=== PATIENT | female | born 1965 | race Two or more races ===

== ENCOUNTER 2016-08-05 08:17 | Day surgery (SDC) | payer OTHER ==
[2016-08-04 15:49] VITALS: BMI 48.4
[2016-08-05] MEDS ORDERED: PROPOFOL 60 ML ONE (09:10)
[2016-08-05 09:59] VITALS: TEMP 97.3
[2016-08-05 10:18] VITALS: BP 114/66; PULSE 70
--- NOTE | 2016-08-08 10:48 | PATH ---
Surgical Pathology Report Patient Name: MARINA MALCOLM [facility]. Rec. #: [id number] /Age/Gender: 1965 (Age: 51) / F Account: [id number] Location: U-ENDOSCOPY Taken: 08/05/2016 Received: 08/05/2016 Reported: 08/08/2016 Physicians: Bonny Wright M.D. Specimen(s) Received A: BX SIGMOID POLYPS B: BX HEPATIC FLEXURE POLYP C: BX RECTAL POLYP Clinical History Abdominal pain, history of colon polyp Diverticulosis, polyps Final Diagnosis A. COLON, SIGMOID, BIOPSY: HYPERPLASTIC POLYP. B. COLON, HEPATIC FLEXURE, BIOPSY: TUBULAR ADENOMA. C. COLON, RECTUM, BIOPSY: HYPERPLASTIC POLYP. Electronically Signed Dipak Dowling M.D. Gross Description A. Received in formalin, labeled "biopsy sigmoid polyps" are 5 coy, irregular portions of soft tissue ranging from 0.2-0.6 cm. in greatest dimension. The specimens are submitted in toto in one cassette. B. Received in formalin, labeled "biopsy hepatic flexure" are 4 coy, irregular portions of soft tissue averaging 0.3 cm. in greatest dimension. The specimens are submitted in toto in one cassette. C. Received in formalin, labeled "biopsy rectal polyp" is a coy, irregular portion of soft tissue measuring 0.3 cm. in greatest dimension. The specimen is submitted in toto in one cassette. 08/05/2016 saudi08/05/2016
== END 2016-08-05 10:00 | disposition home or self-care (01) ==
LOC: JASU-ENDO 08:17
PROVIDERS: ATTEND Internal Medicine Gastroenterology
PROC: 0DBE8ZX Excision of Large Intestine, Via Natural or Artificial Opening Endoscopic, Diagnostic (ICD-10-PCS; 2016-08-05)
PROC: 0DBP8ZX Excision of Rectum, Via Natural or Artificial Opening Endoscopic, Diagnostic (ICD-10-PCS; 2016-08-05)
PROC: 0DBN8ZX Excision of Sigmoid Colon, Via Natural or Artificial Opening Endoscopic, Diagnostic (ICD-10-PCS; principal; 2016-08-05 09:00)
DX: Z86.010 Personal history of colon polyps (principal); K62.1 Rectal polyp; D12.5 Benign neoplasm of sigmoid colon; K63.5 Polyp of colon; K57.30 Diverticulosis of large intestine without perforation or abscess without bleeding
CPT/HCPCS: 84703; 88305-TC

== ENCOUNTER 2018-02-02 08:36 | Day surgery (SDC) | payer OTHER ==
[2018-02-01 10:02] VITALS: BMI 32.5
[2018-02-02 11:07] VITALS: TEMP 98
[2018-02-02 12:56] VITALS: BP 128/65; PULSE 61
--- NOTE | 2018-02-05 17:16 | PATH ---
Surgical Pathology Report Patient Name: MARINA MALCOLM [facility]. Rec. #: [id number] /Age/Gender: 1965 (Age: 52) / F Account: [id number] Location: U-ENDOSCOPY Taken: 02/02/2018 Received: 02/02/2018 Reported: 02/05/2018 Physicians: Bonny Wright M.D. Specimen(s) Received A: BX 2ND PORTION DUODENUM AND DUODENAL BULB B: BX GASTRIC ANTRUM Clinical History Acid reflux, early satiety Postoperative diagnosis: Hiatal hernia, GERD, antral submucosal nodule, gastritis, duodenitis, LAP band, Bariatric surgery status Final Diagnosis A. DUODENUM, SECOND PORTION AND DUODENAL BULB, BIOPSY: DUODENAL MUCOSA WITH MILD ACUTE AND CHRONIC DUODENITIS. B. STOMACH, ANTRUM, BIOPSY: GASTRIC ANTRAL MUCOSA WITH MILD CHRONIC GASTRITIS. IMMUNOHISTOCHEMICAL STAIN FOR H. PYLORI IS NEGATIVE. Electronically Signed Amanda Rebollar M.D. Gross Description A. Received in formalin, labeled "second portion duodenum" are 4 coy, irregular portions of soft tissue measuring 0.2 and 0.3 cm. in greatest dimension. The specimens are submitted in toto in one cassette. B. Received in formalin, labeled "gastric antrum" are 3 coy, irregular portions of soft tissue measuring 0.1 and 0.2 cm. in greatest dimension. The specimens are submitted in toto in one cassette. MLSZ/02/02/2018 sanml/02/02/2018
== END 2018-02-02 12:00 | disposition home or self-care (01) ==
LOC: JASU-ENDO 08:36
PROVIDERS: ATTEND Internal Medicine Gastroenterology
PROC: 0DB68ZX Excision of Stomach, Via Natural or Artificial Opening Endoscopic, Diagnostic (ICD-10-PCS; 2018-02-02)
PROC: 0DB38ZX Excision of Lower Esophagus, Via Natural or Artificial Opening Endoscopic, Diagnostic (ICD-10-PCS; 2018-02-02)
PROC: 0DB98ZX Excision of Duodenum, Via Natural or Artificial Opening Endoscopic, Diagnostic (ICD-10-PCS; principal; 2018-02-02 12:45)
DX: K21.0 Gastro-esophageal reflux disease with esophagitis (principal); K44.9 Diaphragmatic hernia without obstruction or gangrene; K31.7 Polyp of stomach and duodenum; K29.70 Gastritis, unspecified, without bleeding; K29.80 Duodenitis without bleeding; R09.02 Hypoxemia; Z98.84 Bariatric surgery status
CPT/HCPCS: 84703; 88305-TC; 88342-TC

== ENCOUNTER 2018-03-09 10:55 | Day surgery (SDC) | payer OTHER ==
[2018-03-08 14:39] VITALS: BMI 44.9
[2018-03-09] MEDS ORDERED: SCOPOLAMINE HYDROBROMIDE 1 PATCH PATCH.TD72 ONE (12:36)
[2018-03-09] MEDS ORDERED: BUPIVACAINE HCL/PF 0.5% (5MG/ML) 10 ML VIAL ONE ×2 (12:39→12:48)
[2018-03-09] MEDS ORDERED: ceFAZolin SODIUM 1 GM VIAL ONE (12:42)
[2018-03-09] MEDS ORDERED: LIDOCAINE HCL/PF 2% SDV 5ML VIAL ONE (12:42)
[2018-03-09] MEDS ORDERED: fentaNYL CITRATE 250 MCG/5 ML VIAL ONE (12:42)
[2018-03-09] MEDS ORDERED: PROPOFOL 20 ML ONE ×2 (12:43)
[2018-03-09] MEDS ORDERED: ROCURONIUM BROMIDE 50 MG/5 ML VIAL ONE ×2 (12:43→13:59)
[2018-03-09] MEDS ORDERED: MIDAZOLAM HCL 2 MG/2 ML SINGLE DOSE VIAL ONE (12:43)
[2018-03-09] MEDS ORDERED: ceFAZolin SODIUM 1 GM VIAL IVPB ONE (13:08)
[2018-03-09] MEDS ORDERED: DEXAMETHASONE SOD PHOSPHATE 4 MG/1 ML VIAL ONE (13:24)
[2018-03-09] MEDS ORDERED: GLYCOPYRROLATE 0.2 MG/1 ML VIAL ONE (14:29)
[2018-03-09] MEDS ORDERED: BUPIVACAINE HCL/PF (5 MG/ML) 30 ML VIAL IJ ONE (14:38)
[2018-03-09] MEDS ORDERED: ONDANSETRON 4 MG/2 ML VIAL IVPUSH PRN (14:51)
[2018-03-09] MEDS ORDERED: MORPHINE SULFATE 2 MG/ML VIAL IVPUSH PRN (14:53)
--- NOTE | 2018-03-09 14:57 | OP ---
Operative Note - Note: Operative Date: 03/09/18 Pre-Operative Diagnosis: Epigastric pain. Vomiting. Malfunctioning Gastric Band Operation: Removal of Gastric Band plus subcutaneous port. Laparoscopic Lysis of Adhesions. Excision of fibrous Capsule around stomach. Diagnostic Laparoscopy Findings: Massive adhesions between omentum and abdominal wall in midline and right upper quadrant Thick fibrous capsule around stomach Post-Operative Diagnosis: Same as Pre-op (Abdominal adhesions;fibrous capsule around stomach) Surgeon: Sanjeev Hi Radio Station Audio Engineer: Rita Herman Anesthesia: General Specimens Removed: Gastric Band plus Sub-Q port Estimated Blood Loss (mls): 30 Operative Report Dictated: Yes
[2018-03-09] MEDS ORDERED: SODIUM CHLORIDE 1,000 ML IV SCH (15:00)
[2018-03-09] MEDS ORDERED: ACETAMINOPHEN INJECTION 100 ML IVPB ONE (15:17)
[2018-03-09] MEDS ORDERED: ACETAMINOPHEN 1000 MG/100 ML VIAL (NON FORMULARY) IVPB ONE (15:35)
[2018-03-09] MEDS ORDERED: LACTATED RINGERS SOLUTION 1,000 ML IV SCH (16:30)
[2018-03-09] MEDS ORDERED: oxyCODONE HCL 5 MG TABLET PO PRN (16:51)
--- NOTE | 2018-03-09 17:25 | SURG ---
Surgery Social Work Therapist Note Social Work Therapist: Rita Herman PA-C Date of Service: 03/09/18 Diagnosis: Epigastric pain. Vomiting. Malfunctioning Gastric Band Procedure: Removal of Gastric Band plus subcutaneous port. Laparoscopic Lysis of Adhesions. Excision of fibrous Capsule around stomach. Diagnostic Laparoscopy I was present for the entirety of the operative procedure. For further detail, please refer to operative report. Visit type - Case Type Case Type: Scheduled - Emergency Emergency Visit: No - New patient This patient is new to me today: Yes Date on this admission: 03/09/18
[2018-03-09 18:53] VITALS: BP 125/75; PULSE 75; TEMP 98.1
[2018-03-09] MEDS ORDERED: FAMOTIDINE 20 MG/50 ML IVPB 20 MG/50 ML MG IVPB SCH (22:00)
--- NOTE | 2018-03-10 10:25 | OP ---
DATE OF OPERATION: 03/09/2018 PREOPERATIVE DIAGNOSES: 1. Epigastric abdominal pain. 2. Vomiting. 3. Mechanical malfunction of implantable device, secondary to gastric band. POSTOPERATIVE DIAGNOSES: 1. Epigastric abdominal pain. 2. Vomiting. 3. Mechanical complication of implantable device, secondary to gastric band. 4. Abdominal adhesions. 5. A fibrous capsule around the stomach. PROCEDURES PERFORMED: 1. Removal of gastric band plus subcutaneous port component. 2. Laparoscopic lysis of adhesions. 3. Excision of fibrous capsule around the stomach. 4. Diagnostic laparoscopy. OPERATING SURGEON: Sanjeev Hi MD SALES REVIEW CLERK: BERE English ANESTHESIA: General. OPERATIVE PROCEDURE: The patient was brought into the operating room and placed on the OR table in the supine position. All precautions were taken initially, including padding for the back and the feet, and Venodyne boots were placed on both lower extremities. At that point, the abdomen was prepped and draped in the usual manner. A Veress needle was placed in the left upper quadrant and a pneumoperitoneum was established. A number-10 bladeless trocar was placed in the left upper quadrant. Through that trocar, a laparoscopic camera was placed. It should be noted the trocar was placed under direct vision with the laparoscopic camera. Once inside, the camera showed that there were massive adhesions from the patient's previous surgery in the midline. These were between the omentum and the anterior abdominal wall and extended from the midline all the way over to the right upper quadrant by the falciform ligament. At this point, a number-5 bladeless trocar was placed below the left costal margin. With the camera placed in there, the left upper quadrant trocar was used to lyse the adhesions in the midline and in the right upper quadrant between the omentum and the anterior abdominal wall. This was done very careful and meticulously, not to cause any injury to other structures. When it was completed, the right upper quadrant was now in full view. At this point, a number-15 bladeless trocar was placed in the right upper quadrant, followed by a number-5 bladeless trocar more laterally. A Juani liver retractor was placed in the epigastrium to retract the left lobe of the liver. The patient was then placed in a 20-degree reverse Trendelenburg position by Anesthesia. There were massive adhesions between the omentum and the undersurface of the liver and these were lysed with electrocautery. This continued until the band tubing and the band were noted and the adhesions off of this were lysed. The adhesions were lysed on the lesser curvature of the band and this continued until the entire lesser curvature of the band was free of all adhesions. At this point, the operating surgeon retracted the band tubing toward the patient's right side as the hospital aides and assistants teacher surgeon retracted the omentum and the scar tissue inferiorly. The electrocautery was then used to dissect the scar tissue off of the greater curve of the stomach and this continued until the entire band was in full view anteriorly. The band was then opened, but it could not be pulled from around the stomach so it was cut in two, and both pieces were removed from around the stomach and sent off the field to Pathology as a specimen. At this point, attention was directed to the fibrous capsule around the band. With the hospital aides and assistants teacher and operating surgeon lifting it on both sides, a scissors was delicately placed underneath it and used to dissect the fibrous capsule off the underlying anterior stomach wall. This was done from inferior to superior and continued until the entire fibrous capsule was split and now the anterior surface of the stomach was free of all fibrous capsule. At this juncture, saline was placed around the resected fibrous capsule and Anesthesia inserted air which inflated the stomach and no bubbles of air signifying no signs of any gastric leakage. At this point, under direct vision, all trocars removed and pneumoperitoneum released. The number-15 port site was then extended laterally with electrocautery and dissection continued with electrocautery down through the fibrous capsule around the port. This was removed and the port was then removed off the right anterior rectus muscle and sent off the field as a specimen to Pathology. All trocar sites then received 0.25% Marcaine. The number-15 trocar site was closed with 3-0 Vicryl in the subcutaneous tissue and all trocar sites were closed with 4-0 Biosyn in a subcuticular fashion. Dressings were applied. Patient awoken from anesthesia and transferred out of the operating room to the recovery room in stable condition. BLOOD LOSS: 30 mL. Beata MAYORGA/[id number]
--- NOTE | 2018-03-10 12:47 | EKG ---
Test Reason : Blood Pressure : / mmHG Vent. Rate : 065 BPM Atrial Rate : 065 BPM P-R Int : 156 ms QRS Dur : 070 ms QT Int : 376 ms P-R-T Axes : 058 070 054 degrees QTc Int : 391 ms NORMAL SINUS RHYTHM LOW VOLTAGE QRS WHEN COMPARED WITH ECG OF 01-APR-2003 15:39, NO SIGNIFICANT CHANGE WAS FOUND Confirmed by LILI BLOOM MD ([id number]) on 03/10/2018 12:46:51 PM Referred By: Sanjeev Hi Confirmed By:LILI BLOOM MD
--- NOTE | 2018-03-13 10:49 | PATH ---
Surgical Pathology Report Patient Name: MARINA MALCOLM [facility]. Rec. #: [id number] /Age/Gender: 1965 (Age: 52) / F Account: [id number] [facility] Taken: 03/09/2018 Received: 03/12/2018 Reported: 03/13/2018 Physicians: Sanjeev Hi M.D. Specimen(s) Received REMOVED GASTRIC BAND AND SUBCUTANEOUS PORT Clinical History Morbid obesity Final Diagnosis GASTRIC BAND AND PORT, REMOVAL: GASTRIC BAND AND PORT. MACROSCOPIC DIAGNOSIS. Electronically Signed Amanda Rebollar M.D. Gross Description Received fresh labeled "removed gastric band," are 2 portions of a cut gastric band measuring 4.5 x 1.8 x 0.8 cm and 8.0 x 1.8 x 0.8 cm. The larger portion displays a 36 cm in length attached portion of tubing. Also received within the same container is a 3 cm in diameter x 1.4 cm in depth white, circular device, consistent with a port. The port displays a 15 cm in length portion of tubing extending from one aspect. No soft tissue is present. No sections are submitted, gross only. /03/12/2018 saudi03/12/2018
== END 2018-03-09 18:50 | disposition home or self-care (01) ==
LOC: JASU-SURG 10:55
PROVIDERS: ATTEND Surgery
PROC: 0DP64JZ Removal of Synthetic Substitute from Stomach, Percutaneous Endoscopic Approach (ICD-10-PCS; principal; 2018-03-09 12:00)
DX: T85.598A Other mechanical complication of other gastrointestinal prosthetic devices, implants and grafts, initial encounter (principal); K95.09 Other complications of gastric band procedure; R10.13 Epigastric pain; R11.10 Vomiting, unspecified; K66.0 Peritoneal adhesions (postprocedural) (postinfection)
CPT/HCPCS: 36415; 74241-TC-FY; 84703; 86850; 86900; 86901; 88300-TC; 93005; 93010; 94760; J0131

== ENCOUNTER 2018-05-14 06:54 | Emergency (ER) | payer OTHER ==
[2018-05-14 07:21] VITALS: BP 137/85; PULSE 83; TEMP 98.2; BMI 43.4
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
== END 2018-05-14 09:25 | disposition home or self-care (01) ==
LOC: JER 06:54
DX: S13.4XXA Sprain of ligaments of cervical spine, initial encounter (principal); S70.12XA Contusion of left thigh, initial encounter; V49.9XXA Car occupant (driver) (passenger) injured in unspecified traffic accident, initial encounter; Y93.89 Activity, other specified; Y92.410 Unspecified street and highway as the place of occurrence of the external cause
CPT/HCPCS: 73523-TC-FY; 73552-TC-LT-FY; 99281-25

== ENCOUNTER 2019-05-06 07:20 | Emergency (ER) | payer OTHER ==
[2019-05-06 07:29] VITALS: TEMP 97.9; BMI 54.6
--- NOTE | 2019-05-06 08:02 | PDOC ---
History of Present Illness - General Chief Complaint: Lightheaded Stated Complaint: VOMITING/VERTIGO Time Seen by Provider: 05/06/19 08:01 - History of Present Illness Initial Comments: HPI: HPI: 54yo F with PMH of vertigo presenting with dizziness. Patient states her current symptoms are consistent with her previous episodes of vertigo. Anytime she moves her head, her room-spinning dizziness will worsen. She had three episodes of NBNB vomit today. Denies recent syncope or fall. Is not currently prescribed anything for vertigo as she does not have frequent episodes. Todays episode started around 4:30am as she was getting ready for work. It came on all of a sudden and was maximal in onset. No fevers, chills, chest pain, or shortness of breath. ROS: Constitutional: no fever, no chills HEENT: no throat pain, no dysphagia Cardiovascular: no chest pain, no palpitations Respiratory: no cough, no shortness of breath Gastrointestinal: no abdominal pain, +vomiting Genitourinary: no dysuria, no hematuria Musculoskeletal: no myalgia, no arthralgia Skin: no rash, no itching Neurologic: +dizziness, no weakness PE: General: Awake, alert, and fully oriented, in no acute distress Head: No signs of trauma Eyes: EOMI, sclera anicteric ENT: Moist mucus membranes Neck: Normal ROM, supple Lungs: Lungs clear, Normal breath sounds Cardio: Regular rhythm, S1 and S2 present Abdomen: Soft, nontende Extremities: Normal range of motion, Distal pulses present SKIN: Warm, Dry, normal turgor Neurologic: Cranial nerves II through XII intact. Normal speech, sensation, strength, coordination, and gait. ED Course/MDM: DDX including but not limited to vertigo- peripheral vs central Presentation consistent with peripheral vertigo, I have a low suspicion for a central process at this time Nonfocal neurologic exam Meclizine Will reasses 05/06/19 08:01 Dizziness improved after meclizine Given information on Eppley maneuver Referral to neurology Meclizine prescription Return precautions Stable for discharge Past History - Past Medical History Allergies/Adverse Reactions: Allergies Allergy/AdvReac Type Severity Reaction Status Date / Time No Known Allergies Allergy Verified 05/06/19 07:29 Home Medications: Ambulatory Orders Meclizine HCl [Antivert -] 25 mg PO BID #30 tablet 05/06/19 Anemia: No Asthma: No Cancer: Yes (CLEAR CELL CARCINOMA LEFT KIDNEY) Cardiac Disorders: No CVA: No COPD: No CHF: No Diabetes: No GI Disorders: Yes (GERD,H/O H.PYLORI INFECTION,DIVERTICULOSIS,RIGHT COLON ADENOMA,GASTRIC ULCE) Disorders: Yes (H/O UTRINE POLYPS) HTN: No Hypercholesterolemia: No Liver Disease: No Seizures: No Thyroid Disease: No - Surgical History Abdominal Surgery: Yes (LAP BAND BARIATRIC PROCEDURE) Appendectomy: No Cardiac Surgery: No Cholecystectomy: No Lung Surgery: No Neurologic Surgery: No Orthopedic Surgery: No - Psycho Social/Smoking Cessation Hx Smoking History: Never smoked Have you smoked in the past 12 months: No Hx Alcohol Use: No Drug/Substance Use Hx: No Substance Use Type: Marijuana *Physical Exam - Vital Signs Last Vital Signs Temp Pulse Resp BP Pulse Ox 97.9 F 62 16 147/85 98 05/06/19 07:24 05/06/19 07:24 05/06/19 07:24 05/06/19 07:24 05/06/19 07:24 Discharge - Discharge Information Problems reviewed: Yes Clinical Impression/Diagnosis: Vertigo Condition: Fair Disposition: HOME - Additional Discharge Information Prescriptions: Meclizine HCl [Antivert -] 25 mg PO BID #30 tablet - Follow up/Referral Referrals: Jermaine Woo MD [Staff Physician] - - Patient Discharge Instructions Patient Printed Discharge Instructions: Vertigo Additional Instructions: Drink plenty of fluids. Meclizine as prescribed. Follow-up with Dr. Woo neurology. Return to the emergency department for any persistent symptoms severe worsening symptoms or for any concerns If possible perform the Radha maneuver in the packet provided to help alleviate symptoms - Post Discharge Activity Work/Back to School Note: Back to Work
[2019-05-06] MEDS ORDERED: MECLIZINE HCL 25 MG TABLET (FP) PO ONE (08:29)
[2019-05-06 08:32] VITALS: BP 136/76; PULSE 56
[2019-05-06] MEDS ORDERED: MECLIZINE HCL 25 MG TABLET (FP) ONE (08:40)
--- NOTE | 2019-05-06 09:29 | PDOC ---
Attending Attestation - Resident Resident Name: Laura Ramon - ED Attending Attestation I have performed the following: I have examined & evaluated the patient, The case was reviewed & discussed with the resident, I agree w/resident's findings & plan, Exceptions are as noted - HPI HPI: 05/06/19 13:25 54 years old 1 day history of positional vertigo alleviated by rest patient with history of similar no headache no weakness no numbness no other neurologic symptoms one episode of vomiting when vertigo was severe currently asymptomatic - Physicial Exam PE: 05/06/19 09:30 Vitals: Triage Vital signs reviewed and discussed General Appearance: No acute distress, well nourished well developed, Head: Atraumatic, Extremities: Full range of motion to all extremities, no cyanosis, clubbing, or edema Skin: Warm and dry, no rashes or lesions, no rash, no petechiae Neuro: AOX3; cranial Nerves 2-12 grossly intact, strength intact to all extremities, sensation intact to all extremities, gait normal Psych: Normal mood, normal affect - Medical Decision Making 05/06/19 09:32 54 years old past medical history notable for previous renal CA status post resection presents with sudden onset positional vertigo associated with vomiting now resolved no persistent symptoms normal neurologic examination patient has had a history of vertigo in the past states this feels exactly like her previous episode of vertigo. Currently symptom-free able to ambulate comfortably around the emergency department with a normal neurologic examination offered patient work-up but patient states that since she feels better she would like to return home. She will follow-up with neurology as an outpatient she will return to the ED for any severe worsening symptoms that become persistent or constant will prescribe patient with a prescription for meclizine Findings, the need for follow-up and strict return instructions discussed with patient. 05/06/19 13:25 Discharge - Discharge Information Problems reviewed: Yes Clinical Impression/Diagnosis: Vertigo Condition: Fair Disposition: HOME - Admission No - Additional Discharge Information Prescriptions: Meclizine HCl [Antivert -] 25 mg PO BID #30 tablet - Follow up/Referral Referrals: Jermaine Woo MD [Staff Physician] - - Patient Discharge Instructions Patient Printed Discharge Instructions: Vertigo Additional Instructions: Drink plenty of fluids. Meclizine as prescribed. Follow-up with Dr. Woo neurology. Return to the emergency department for any persistent symptoms severe worsening symptoms or for any concerns If possible perform the Radha maneuver in the packet provided to help alleviate symptoms - Post Discharge Activity Work/Back to School Note: Back to Work
== END 2019-05-06 09:43 | disposition home or self-care (01) ==
LOC: JER 07:20
DX: H81.10 Benign paroxysmal vertigo, unspecified ear (principal); Z87.19 Personal history of other diseases of the digestive system; Z98.84 Bariatric surgery status
CPT/HCPCS: 99282-25

== ENCOUNTER 2021-05-16 11:20 | Emergency (ER) | payer OTHER ==
[2021-05-16 11:49] VITALS: BP 107/68; PULSE 96; TEMP 99.7; BMI 49.1
[2021-05-16] MEDS ORDERED: ALBUTEROL SO4 2.5/IPRATROPIUM 0.5 INH SOL 3 ML VIAL.NEB. NEB ONE ×2 (11:55→12:02)
== END 2021-05-16 12:30 | disposition home or self-care (01) ==
LOC: FER 11:20
PROC: 3E0F7GC Introduction of Other Therapeutic Substance into Respiratory Tract, Via Natural or Artificial Opening (ICD-10-PCS; principal; 2021-05-16)
DX: R05.9 Cough, unspecified (principal)
CPT/HCPCS: 71046-TC-FY; 99284-25; C9803-CS; U0003; U0005

== ENCOUNTER 2022-01-19 07:47 | Emergency (ER) | payer OTHER ==
[2022-01-19] MEDS ORDERED: ACETAMINOPHEN 325 MG TABLET (FP) PO ONE (08:02)
[2022-01-19] MEDS ORDERED: ONDANSETRON 4 MG/2 ML VIAL IVPUSH ONE (08:02)
[2022-01-19] MEDS ORDERED: ONDANSETRON 4 MG/2 ML VIAL ONE (08:13)
[2022-01-19] MEDS ORDERED: ACETAMINOPHEN 325 MG TABLET (FP) ONE (08:13)
[2022-01-19 08:24] VITALS: BP 137/88; PULSE 83; RESP 18; BMI 48.8
[2022-01-19 08:33] LABS: HEMATOCRIT 42.9 % (32.4-45.2); HEMOGLOBIN 14.9 G/dL (10.7-15.3); MCH 32.6 pg (25.7-33.7); MCHC 34.7 g/dl (32.0-36.0); MEAN CELL VOLUME 93.8 fl (80-96); MEAN PLT VOLUME 9.9 fl (7.5-11.1); PLATELET COUNT 293.9 10^3/uL (134-434); RBC 4.57 10^6/uL (3.60-5.2); RDW 14.1 % (11.6-15.6)
[2022-01-19 08:40] LABS: ALBUMIN 3.7 g/dl (3.4-5.0); BILIRUBIN,TOTAL 0.9 mg/dl (0.2-1); CALCIUM 9.8 mg/dl (8.5-10); CREATININE 1.5 mg/dl (0.55-1.3); TOT PROT 6.8 g/dl (6.4-8.2)
[2022-01-19 09:34] LABS: PLATELET ESTIMATE ADEQUATE
[2022-01-19 10:54] VITALS: TEMP 99.2
== END 2022-01-19 10:58 | disposition home or self-care (01) ==
LOC: FER 07:47
DX: R11.2 Nausea with vomiting, unspecified (principal)
CPT/HCPCS: 0241U-QW; 36415; 74176-TC; 80053; 81003; 81015; 83690; 85025; 87086; 99284-25

== ENCOUNTER 2024-04-08 14:47 | Observation (INO) | payer OTHER ==
[2024-04-08] MEDS ORDERED: ACETAMINOPHEN 500 MG TABLET (FP) ONE (17:40)
[2024-04-08] MEDS ORDERED: LIDOCAINE 4% PATCH TP ONE (17:40)
[2024-04-08] MEDS ORDERED: KETOROLAC TROMETHAMINE 30 MG/1 ML VIAL ONE (17:40)
[2024-04-08] MEDS: LIDOCAINE 4% PATCH TP ONE (17:57)
[2024-04-08] MEDS: KETOROLAC TROMETHAMINE 30 MG/1 ML VIAL IM ONE (17:57)
[2024-04-08] MEDS: ACETAMINOPHEN 500 MG TABLET (FP) PO ONE (17:58)
[2024-04-08 18:55] LABS: BASO % 0.4 % (0-2.0); HEMATOCRIT 41.1 % (32.4-45.2); HEMOGLOBIN 13.9 GM/dL (10.7-15.3); LYMPH % 20.6 % (8-40); MCHC 33.9 g/dl (32.0-36.0); MEAN CELL VOLUME 91.4 fl (80-96); MEAN PLT VOLUME 10.2 fl (7.5-11.1); MONO % 9.1 % (3.8-10.2); NEUT % 68.9 % (42.8-82.8); PLATELET COUNT 346 10^3/uL (134-434); RBC 4.49 M/mm3 (3.60-5.2); RDW 15.4 % (11.6-15.6); WHITE BLOOD COUNT 9.7 K/mm3 (4.0-10.0)
[2024-04-08] MEDS: LIDOCAINE PATCH REMOVAL MC SCH (22:04)
[2024-04-08] MEDS ORDERED: traMADol HCL 50 MG TABLET ONE (22:13)
[2024-04-08] MEDS: traMADol HCL 50 MG TABLET PO ONE (22:30)
[2024-04-08 22:33] LABS: HEMATOCRIT 41.2 % (32.4-45.2); HEMOGLOBIN 13.4 GM/dL (10.7-15.3); MCH 30.5 pg (25.7-33.7); MCHC 32.4 g/dl (32.0-36.0); MEAN PLT VOLUME 9.9 fl (7.5-11.1); PLATELET COUNT 275 10^3/uL (134-434); RBC 4.38 M/mm3 (3.60-5.2); RDW 14.1 % (11.6-15.6); WHITE BLOOD COUNT 9.5 K/mm3 (4.0-10.0)
[2024-04-08 23:19] LABS: INR 0.97 (0.83-1.09); PROTHROMBIN TIME (PATIENT) 11.2 SEC (9.7-13.0)
[2024-04-08 23:22] LABS: ACTIVATED PTT 20.2 SECONDS (25.2-36.5)
[2024-04-09 00:50] VITALS: BMI 54.8
[2024-04-09] MEDS: ACETAMINOPHEN 325 MG TABLET (FP) PO PRN (02:57)
[2024-04-09] MEDS: LIDOCAINE 5% TOPICAL PATCH TP ONE (04:40)
[2024-04-09] MEDS: LIDOCAINE PATCH REMOVAL MC SCH (04:45)
[2024-04-09] MEDS: traMADol HCL 50 MG TABLET PO PRN (06:41)
[2024-04-09] MEDS: HEPARIN NA (PORCINE) 5,000 UNITS/ML 1ML VIAL SQ SCH (10:05)
[2024-04-09] MEDS: LIDOCAINE 5% TOPICAL PATCH TP SCH (10:19)
[2024-04-09 16:39] LABS: PH,URINE 5.5 (5.0-8.0); URINE APPEARANCE Clear; URINE BILIRUBIN Negative (NEGATIVE); URINE COLOR Yellow; URINE GLUCOSE (UA) Negative (NEGATIVE); URINE KETONE Negative (NEGATIVE); URINE LEUK ESTERASE Negative (NEGATIVE); URINE NITRITE Negative (NEGATIVE); URINE PROTEIN Negative (NEGATIVE)
[2024-04-10 07:48] LABS: BASO % 0.4 % (0-2.0); EOS % 0.9 % (0-4.5); HEMATOCRIT 40.7 % (32.4-45.2); HEMOGLOBIN 13.4 GM/dL (10.7-15.3); LYMPH % 21.7 % (8-40); MCH 30.8 pg (25.7-33.7); MEAN CELL VOLUME 93.4 fl (80-96); MEAN PLT VOLUME 9.9 fl (7.5-11.1); PLATELET COUNT 284 10^3/uL (134-434); RBC 4.36 M/mm3 (3.60-5.2); RDW 13.9 % (11.6-15.6); WHITE BLOOD COUNT 7.6 K/mm3 (4.0-10.0)
[2024-04-10 08:14] LABS: CALCIUM 9.3 mg/dL (8.5-10.1)
[2024-04-10 08:15] LABS: ALBUMIN 3.4 g/dl (3.4-5.0); BLOOD UREA NITROGEN 11.2 mg/dL (7-18)
[2024-04-10 08:18] LABS: BILIRUBIN,TOTAL 0.9 mg/dL (0.2-1); CREATININE 0.8 mg/dL (0.55-1.3); TOT PROT 6.7 g/dl (6.4-8.2)
[2024-04-10] MEDS: KETOROLAC TROMETHAMINE 30 MG/1 ML VIAL IVPUSH ONE (20:45)
[2024-04-11 15:53] VITALS: BP 157/84; PULSE 70; RESP 21; TEMP 99
== END 2024-04-11 16:30 | disposition home or self-care (01) ==
LOC: JER 14:47 → JERBED 18:28 → J7W 23:21
PROVIDERS: ADMIT Internal Medicine; ATTEND Internal Medicine
PROC: 3E0233Z Introduction of Anti-inflammatory into Muscle, Percutaneous Approach (ICD-10-PCS; principal; 2024-04-08)
PROC: 3E0333Z Introduction of Anti-inflammatory into Peripheral Vein, Percutaneous Approach (ICD-10-PCS; 2024-04-08)
DX: M71.21 Synovial cyst of popliteal space [Baker], right knee (principal); M17.11 Unilateral primary osteoarthritis, right knee; Z98.84 Bariatric surgery status; Z85.528 Personal history of other malignant neoplasm of kidney; Z90.5 Acquired absence of kidney; D25.9 Leiomyoma of uterus, unspecified; E66.01 Morbid (severe) obesity due to excess calories; F17.200 Nicotine dependence, unspecified, uncomplicated
CPT/HCPCS: 36415; 72131-TC; 73564-TC-RT-FY; 80053; 81003; 85025; 85027; 85610; 85730; 87086; 93005; 93010; 93971-TC; 97116-GP; 97161-GP; 99285-25; G0378; J1644